=== PATIENT | female | born 1975 | race Caucasian/White ===

== ENCOUNTER 2017-06-11 17:20 | Emergency (ER) | payer OTHER ==
[~2017-06-11] VITALS: Wt 74.6 kg
[2017-06-11] MEDS ORDERED: SOD CHLORIDE 0.9% 1,000 ML IV STA (17:35)
[2017-06-11 17:58] LABS: ADD SCAN DIFF NO
[2017-06-11 18:00] LABS: BASOPHIL # 0.1 10^3/ul (0.0-0.1); BASOPHILS % 0.5 % (0.0-2.0); EOSINOPHILS % 0.1 % (0.0-7.0); HEMATOCRIT 45.5 % (37.0-47.0); HEMOGLOBIN 15.5 g/dl (12.0-16.0); LYMPHOCYTES # 1.4 10^3/ul (0.8-2.9); LYMPHOCYTES % 11.4 % (15.0-51.0); MEAN CORPUSCULAR HGB CONC 34.1 g/dl (32.0-37.0); MEAN CORPUSCULAR VOLUME 88.2 fl (82.0-101.0); MEAN PLATELET VOLUME 9.3 fl (7.4-10.4); MONOCYTE # 0.5 10^3/ul (0.3-0.9); MONOCYTES % 3.8 % (0.0-11.0); NEUTROPHILS % 83.8 % (39.0-77.0); PLATELET COUNT 315 10^3/UL (140-415); RED BLOOD COUNT 5.16 10^6/ul (4.20-5.40); RED CELL DISTRIBUTION WIDTH 12.4 % (11.5-14.5)
[2017-06-11 18:20] LABS: D-DIMER 483.99 ng/ml (<460)
[2017-06-11 18:24] LABS: ANION GAP 22 (8-16); BLOOD UREA NITROGEN 15 mg/dl (7-20); CALCIUM 9.9 mg/dl (8.4-10.2); CARBON DIOXIDE 25 mmol/L (21-31); CHLORIDE 99 mmol/L (97-110); CREATININE 1.05 mg/dl (0.44-1.00); GLUCOSE 147 mg/dl (70-220); POTASSIUM 3.5 mmol/L (3.5-5.1); SODIUM 142 mmol/L (135-144)
[2017-06-11] MEDS ORDERED: ATEN50TA PO (18:32)
--- NOTE | 2017-06-11 18:48 | RADRPT ---
PROCEDURE: XR Chest. CLINICAL INDICATION: Chest pain. TECHNIQUE: Single frontal view of the chest. COMPARISON: None. FINDINGS: The cardiomediastinal silhouette is within normal limits. The lungs are clear. No signs of pleural f luid or pneumothorax are seen. The osseous structures and soft tissues are unremarkable. IMPRESSION: No evidence for active cardiopulmonary disease. RPTAT: [facility] Physician Deshaun Date Time Electronically viewed and signed by Physician Deshaun on 06/11/2017 18:48 RS/
[2017-06-11 18:56] LABS: TROPONIN-I < 0.012 ng/ml (0.00-0.12)
[2017-06-11 19:00] LABS: INR 0.93; PARTIAL THROMBOPLASTIN TIME 33.1 Sec (25.0-35.0); PROTIME 12.5 Sec (12.2-14.2)
[2017-06-11] MEDS ORDERED: KETOROLAC 30 MG INJ IV STA (19:02)
[2017-06-11] MEDS ORDERED: IOHEXOL 100 ML ONE (19:29)
[2017-06-11] MEDS ORDERED: SOD CHLORIDE 0.9% 100 ML ONE (19:29)
[2017-06-11] MEDS ORDERED: IOHEXOL 350MG/ML 50 ML BTL ONE (19:29)
--- NOTE | 2017-06-11 20:16 | RADRPT ---
PROCEDURE: CTA Chest and pulmonary angiogram. CLINICAL INDICATION: Rule out pulmonary emboli, chest pain TECHNIQUE: CT scan of the chest and CT pulmonary angiogram was performed on a multidetector high-r esolution CT scanner. High-resolution thin slice coronal and sagittal imaging was obtained from the axial source images. No 3-D/maximum intensity projection reformatted imaging was performed. The pa tient was examined following the intravenous administration of 120 cc of Omnipaque-350. The images w ere reviewed on a PACS workstation. The total exam CTDI equals 22.53 +16.87 mGy, and the total exam DLP equals 575.51 mGy-cm. One or more the following dose reduction techniques were utilized: Automated exposure control, adjus tment of the mA and / or kV according to patient's size, or use of iterative reconstruction techniqu e. COMPARISON: Chest x-ray of 06/11/2017 FINDINGS: No filling defects suggestive of emboli are seen in main, lobar or segmental pulmonary arteries. No thoracic aortic aneurysm or dissection is seen. No enlarged mediastinal lymph nodes are seen. No pleural effusion is seen. Mild dependent atelectasis in posterior lungs. No focal pulmonary infiltra te is seen. There is appearance of likely small benign intraparenchymal lymph node adjacent to the r ight minor fissure. Cholelithiasis. Schmorl's node superior lower thoracic vertebral body. IMPRESSION: No evidence of pulmonary emboli. Cholelithiasis. Please see above. RPTAT: [facility]JES .Alec Jiménez MD, MD Date Time Electronically viewed and signed by .Alec Jiménez MD, MD on 06/11/2017 20:16 .S/
[2017-06-11] MEDS ORDERED: IBUP800T25 PO (20:25)
--- NOTE | 2017-06-11 20:25 | ERD ---
ER Documentation Chief Complaint Date/Time DATE: 06/11/17 TIME: 20:21 Chief Complaint CP WHILE OUTSIDE WORK ABOUT 4 HRS [employer]IENT [employer]. SENT FROM CLINIC. MILD SOB NOTED HPI This is a 42-year-old female who presents to the emergency room for evaluation of chest pain. This patient states that she was standing outside of her work and noticed some centralized chest pain worse with deep inspiration. She denies any nausea, diaphoresis or vomiting associated with this. She denies any numbness or tingling or radiation of the pain. She went to a health clinic and was sent to the emergency room for further evaluation. She does state she has a history of hypertension, but denies any family history of cardiac disease , hyperlipidemia, diabetes, or tobacco abuse ROS All systems reviewed and are negative except as per history of present illness. Medications Home Meds Reported Medications Atenolol* (Atenolol*) 50 Mg Tablet, 50 MG PO DAILY, #30 TAB 06/11/17 Allergies Allergies: Coded Allergies: tetracycline (Verified Allergy, Unknown, 06/11/17) PMhx/Soc History of Surgery: Yes (hysterectomy; c/s x2) Hx Neurological Disorder: No Hx Respiratory Disorders: No Hx Cardiac Disorders: Yes (hypertension) Hx Psychiatric Problems: No Hx Alcohol Use: No Hx Substance Use: No Hx Tobacco Use: No Smoking Status: Never smoker Physical Exam Vitals Vital Signs Date Time Temp Pulse Resp B/P Pulse Ox O2 Delivery O2 Flow Rate FiO2 06/11/17 19:12 88 16 124/79 100 Nasal Cannula 2.0 06/11/17 17:40 98.8 105 20 145/100 98 06/11/17 17:30 Nasal Cannula 2 Physical Exam INITIAL VITAL SIGNS: Reviewed by me GENERAL: The patient is well developed and appropriate for usual state of health in no apparent distress HEENT: Pupils equal, round, and reactive to light. EOMI. There is no scleral icterus. NECK: C-spine is soft and supple, there is no meningismus. There is no cervical lymphadenopathy. LUNGS: Clear to auscultation bilaterally. There are no rales, wheezes or rhonchi. HEART: Regular rate and rhythm, no murmurs, clicks, rubs or gallops. ABDOMEN: Soft, non-tender, non-distended. There are bowel sounds in all four quadrants. No rebound or guarding. EXTREMITIES: There is no peripheral cyanosis or edema. No focal swelling or erythema. NEUROLOGICAL: The patient moves all four extremities with 5/5 strength. Cranial nerves II - XII are intact. Normal gait. Alert and oriented SKIN: There is no apparent rash or petechiae. Musculoskeletal: Tender to palpation of the anterior chest wall HEME/LYMPHATIC: There is no evidence of excessive bruising or lymphedema. PSYCHIATRIC: The patient does not appear anxious or depressed. Result Diagram: 06/11/17 1745 06/11/17 1745 Results 24 hrs Laboratory Tests Test 06/11/17 17:45 White Blood Count 12.010^3/ul Red Blood Count 5.1610^6/ul Hemoglobin 15.5g/dl Hematocrit 45.5% Mean Corpuscular Volume 88.2fl Mean Corpuscular Hemoglobin 30.0pg Mean Corpuscular Hemoglobin Concent 34.1g/dl Red Cell Distribution Width 12.4% Platelet Count 15908^3/UL Mean Platelet Volume 9.3fl Neutrophils % 83.8% Lymphocytes % 11.4% Monocytes % 3.8% Eosinophils % 0.1% Basophils % 0.5% Nucleated Red Blood Cells % 0.0/100WBC Neutrophils # 10.010^3/ul Lymphocytes # 1.410^3/ul Monocytes # 0.510^3/ul Eosinophils # 0.010^3/ul Basophils # 0.110^3/ul Nucleated Red Blood Cells # 0.010^3/ul Prothrombin Time 12.5Sec Prothrombin Time Ratio 1.0 INR International Normalized Ratio 0.93 Activated Partial Thromboplast Time 33.1Sec D-Dimer 483.99ng/ml D-Dimer Comment Sodium Level 142mmol/L Potassium Level 3.5mmol/L Chloride Level 99mmol/L Carbon Dioxide Level 25mmol/L Anion Gap 22 Blood Urea Nitrogen 15mg/dl Creatinine 1.05mg/dl Glucose Level 147mg/dl Calcium Level 9.9mg/dl Troponin I < 0.012ng/ml Current Medications Medications (Trade) Dose Ordered Sig/John Route PRN Reason Start Time Stop Time Status Last Admin Dose Admin Sodium Chloride (NS) 1,000 ml @ 1,000 mls/hr Q1H STAT IV 06/11/17 17:35 06/11/17 18:34 DC 06/11/17 17:47 Ketorolac Tromethamine (Toradol) 30 mg ONCE STAT IV 06/11/17 19:02 06/11/17 19:03 DC 06/11/17 19:09 IV Flush 10 ml 10 ml STK-MED ONCE .ROUTE 06/11/17 19:29 06/11/17 19:30 DC 06/11/17 19:39 Sodium Chloride 100 ml @ ud STK-MED ONCE .ROUTE 06/11/17 19:29 06/11/17 19:30 DC 06/11/17 19:39 Iohexol (Omnipaque) 100 ml @ ud STK-MED ONCE .ROUTE 06/11/17 19:29 06/11/17 19:30 DC 06/11/17 19:39 Iohexol (Omnipaque 350mg/ ml) 50 ml STK-MED ONCE .ROUTE 06/11/17 19:29 06/11/17 19:30 DC 06/11/17 19:40 Procedures/MDM EKG: Rate/Rhythm: [Normal Sinus Rhythm] QRS, ST, T-waves: [No changes consistent w/ acute ischemia] Impression: [No evidence of ischemia or arrhythmia] Chest X-ray 1V Interpreted by me: Soft Tissue: No acute abnormalities Bones: No acute abnormalities Mediastinum/Cardiac Silhouette/Lungs: [No acute abnormalities] CTA chest: No evidence of pulmonary emboli. Cholelithiasis. This 42-year-old female presents to the ER for evaluation of chest pain. When I evaluated this patient she was slightly tachycardic however she was not hypoxic and she was hemodynamically stable. The patient described chest pain was started quite rapidly while she was standing still. The patient denies any exertional component to this chest pain. I did obtain lab work including an EKG which is nonischemic. Suspicious d-dimer was slightly elevated and a CT angios obtained to rule out pulmonary embolism. The patient's CT angios does not show any signs of pulmonary embolism and this patient was given Toradol intravenously in the emergency room. Upon my reevaluation this patient along has any tenderness to palpation of the anterior chest wall. She says she is feeling much better at this time. I told her that she could have costochondritis. This patient will be discharged at this time with a prescription for Motrin, instructed to follow-up with the clinic to establish care for an outpatient stress test. The patient is comfortable with the plan of care and will be discharged at this time. Differential diagnoses entertained was broad with potential high acuity. Patient has been evaluated for acute myocardial infarction, unstable angina, aortic dissection, pulmonary embolism, other intrathoracic and cardiac concerns. Ultimately the patient's evaluation is nondiagnostic. Based on the patient's lack of risk factors, as well as the patient's clinical, laboratory, and imaging data, the patient appears to be low risk for these high risk causes of chest pain. Departure Diagnosis: Primary Impression: Chest pain Additional Impressions: Acute costochondritis Cholelithiasis Condition: Stable HAILY PRINCE DO Jun 11, 2017 20:25
[2017-06-11 20:41] VITALS: BP 150/99; PULSE 79; RESP 16; TEMP 98.1
== END 2017-06-11 20:43 | disposition home or self-care (01) ==
LOC: E/R 17:20
DX: R07.9 Chest pain, unspecified (principal); M94.0 Chondrocostal junction syndrome [Tietze]; K80.20 Calculus of gallbladder without cholecystitis without obstruction; I10 Essential (primary) hypertension
CPT/HCPCS: 36415; 71010; 71275; 80048; 84484; 85025; 85378; 85610; 85730; 93005; 96374; J1885; J7030; Q9967; Z7502; Z7610

== ENCOUNTER 2017-06-26 11:42 | Day surgery (SDC) | payer OTHER ==
[~2017-06-26] VITALS: Ht 154.9 cm; Wt 80.5 kg
[~2017-06-26 11:42] MED LIST: ATEN50TA PO; IBUP800T25 PO
[2017-06-26 12:18] VITALS: Ht 154.9 cm; Wt 80.5 kg
[2017-06-26] MEDS ORDERED: hydrochlorothiazide PO (12:25)
[2017-06-26] MEDS ORDERED: PROPOFOL 40 ML ONE (12:49)
[2017-06-26] MEDS ORDERED: LIDOCAINE 2% (SDV) 5 ML INJ ONE (12:50)
--- NOTE | 2017-06-26 13:19 | OPPN ---
Date/Time of Note Date/Time of Note DATE: 06/26/17 TIME: 13:17 Operative Report Preoperative Diagnosis Chronic heartburn Postoperative Diagnosis Gastroesophageal reflux disease Gastritis with erosions Gastric mucosal biopsies were taken for H. pylori test Operation/Procedure Performed Esophagogastroduodenoscopy and biopsy Anesthesia: other Estimated blood loss: none Specimens Gastric mucosal biopsy for H. pylori test Complications: None CLAIRE LOZA MD Jun 26, 2017 13:19
[2017-06-26 13:45] VITALS: BP 125/80; RESP 12
--- NOTE | 2017-06-27 06:19 | GILP ---
DATE OF PROCEDURE: 06/26/2017 PROCEDURE PERFORMED: Esophagogastroduodenoscopy and biopsy. SURGEON: Beba Bingham MD PREOPERATIVE DIAGNOSIS: Chronic heartburn. POSTOPERATIVE DIAGNOSES: 1. Gastroesophageal reflux disease. 2. Gastritis with erosions. 3. Gastric mucosal biopsies were taken for Helicobacter pylori test and it was positive. INDICATION: Ms. Berhane Barnes is a 42-year-old female patient who had chronic heartburn and upper abdominal pain not responding to therapy. The patient was scheduled for endoscopy examination for further evaluation. The procedure and possible complications were well explained to the patient. The patient understood and consented to the procedure. DESCRIPTION OF PROCEDURE: Under the influence of anesthesia, the gastroscope was carefully introduced into the esophagus. Under direct vision, it was advanced to the stomach into the pylorus into the duodenal bulb, and descending duodenum. FINDINGS: The patient had gastroesophageal reflux disease. Stomach - she has gastritis with erosions. Biopsy was positive for Helicobacter pylori infection. Duodenum was normal. She tolerated the procedure very well. There was no complication from the procedure. At the end of procedure she was awake with stable vital signs and she was discharged home in the care of her family. IMPRESSION: Please see postop diagnoses. PLAN: 1. Omeprazole 40 mg p.o. every a.m. 2. Zantac 300 mg p.o. b.i.d. for 14 days. 3. Amoxicillin 1 g p.o. b.i.d. for 14 days. 4. Flagyl 500 mg p.o. b.i.d. for 14 days. 5. Pepto-Bismol two tablets p.o. b.i.d. for 14 days. Dictated By: MD LORA Juarez/rosa/goldy /Document#: [id number]
== END 2017-06-26 14:43 | disposition home or self-care (01) ==
LOC: GIL 11:42
PROVIDERS: ATTEND Internal Medicine Gastroenterology
DX: K21.9 Gastro-esophageal reflux disease without esophagitis (principal); K29.60 Other gastritis without bleeding; B96.81 Helicobacter pylori [H. pylori] as the cause of diseases classified elsewhere; I10 Essential (primary) hypertension; E66.9 Obesity, unspecified; Z68.33 Body mass index [BMI] 33.0-33.9, adult
CPT/HCPCS: 43239; 87081; Z7610